=== PATIENT | male | born 1930 | race Caucasian/White ===

== ENCOUNTER 2017-09-16 17:44 | Emergency (ER) | payer OTHER ==
--- NOTE | 2017-09-16 18:12 | Emergency Department Record ---
History of Present Illness - General Chief Complaint: Laceration(s) Stated Complaint: FALL,HEAD LAC Time Seen by Provider: 09/16/17 18:10 Source: Patient, Family () Mode of Arrival: Ambulatory - History of Present Illness Initial Commments: The patient's at the bedside states that he was standing on a chair in an attempt to change a light bulb. While she was getting the light bulb he fell off the chair, hitting his left side of his head on a dog cage, cutting the scalp. He did not lose consciousness or vomit. His states he needs a tetanus, that he has dementia and is hard of hearing. She denies that he uses any blood thinners or aspirin. Patient denies tyson, neck pain, chest, back, rib, abdomen, or extremity pain. He states his hearing aides stopped working yesterday. Onset/Timin -: Minutes(s) Location: Scalp Place: Home Context: Fall Associated Symptoms: None Treatments Prior to Arrival: Bandage - Ce Coma Scale Eye Response: (4) Open spontaneously Motor Response: (6) Obeys commands Verbal Response: (5) Oriented Ce Total: 15 - Related Data Hx Tetanus Toxoid Vaccination: No Patient Tetanus UTD (within 5 yrs): No Home Medications Medication Instructions Recorded Confirmed Last Taken Unobtainable [Unobtainable] 09/16/17 09/16/17 Unknown Allergies Allergy/AdvReac Type Severity Reaction Status Date / Time No Known Drug Allergies Allergy Verified 09/16/17 17:49 Travel Screening - Travel/Exposure Within Last 30 Days Have you traveled within the last 30 days?: No Review of Systems Reviewed: No additional complaints except as noted below Constitutional: Reports: As per HPI. Denies: Chills, Fever, Malaise, Night sweats, Weakness, Weight change Eyes: Reports: As per HPI. Denies: Eye discharge, Eye pain, Photophobia, Vision change ENT: Reports: As per HPI. Denies: Congestion, Dental pain, Ear pain, Epistaxis , Hearing loss, Throat pain Respiratory: Reports: As per HPI. Denies: Cough, Dyspnea, Hemoptysis, Stridor, Wheezes Cardiovascular: Reports: As per HPI. Denies: Arrhythmia, Chest pain, Dyspnea on exertion, Edema, Murmurs, Orthopnea, Palpitations, Paroxysmal nocturnal dyspnea, Rheumatic Fever, Syncope Endocrine: Reports: As per HPI. Denies: Fatigue, Heat or cold intolerance, Polydipsia, Polyuria Gastrointestinal: Reports: As per HPI. Denies: Abdominal pain, Constipation, Diarrhea, Hematemesis, Hematochezia, Melena, Nausea, Vomiting Genitourinary: Reports: As per HPI. Denies: Dysuria, Frequency, Hematuria, Incontinence, Retention, Testicular pain, Testicular mass, Urgency Musculoskeletal: Reports: As per HPI. Denies: Arthralgia, Back pain, Gout, Joint swelling, Myalgia, Neck pain Skin: Reports: As per HPI. Denies: Bruising, Change in color, Change in hair/ nails, Lesions, Pruritus, Rash Neurological: Reports: As per HPI. Denies: Abnormal gait, Confusion, Headache, Numbness, Paresthesias, Seizure, Tingling, Tremors, Vertigo, Weakness Psychiatric: Reports: As per HPI. Denies: Anxiety, Auditory hallucinations, Depression, Homicidal thoughts, Suicidal thoughts, Visual hallucinations Hematological/Lymphatic: Reports: As per HPI. Denies: Anemia, Blood Clots, Easy bleeding, Easy bruising, Swollen glands Past Medical History - SOCIAL HISTORY Smoking Status: Never smoker Alcohol Use: None Drug Use: None - RESPIRATORY Hx Respiratory Disorders: No - CARDIOVASCULAR Hx Cardio Disorders: No - NEURO Hx Neuro Disorders: Yes Hx Dementia: Yes - GI Hx GI Disorders: No - Hx Genitourinary Disorders: No - ENDOCRINE Hx Endocrine Disorders: No - MUSCULOSKELETAL Hx Musculoskeletal Disorders: No - PSYCH Hx Psych Problems: No - HEMATOLOGY/ONCOLOGY Hx Hematology/Oncology Disorders: No Family Medical History Any Significant Family History?: No Physical Exam - General General Appearance: Alert, Oriented x3, Cooperative, No acute distress, Other ( hard of hearing) - Head Head exam: Other (3.0 cm lac to left parietal scalp, bleeding controlled) - Eye Eye exam: Normal appearance, PERRL Pupils: Normal accommodation - ENT ENT exam: Normal exam, Mucous membranes moist, Normal external ear exam, Normal orophraynx, TM's normal bilaterally Ear exam: Normal external inspection. negative: External canal tenderness Nasal Exam: Normal inspection. negative: Discharge, Sinus tenderness Mouth exam: Normal external inspection, Tongue normal Teeth exam: Normal inspection. negative: Dental caries Throat exam: Normal inspection. negative: Tonsillar erythema, Tonsillar exudate - Neck Neck exam: Normal inspection, Full ROM. negative: Lymphadenopathy, Tenderness - Respiratory Respiratory exam: Normal lung sounds bilaterally. negative: Accessory muscle use, Chest wall tenderness, Decreased breath sounds, Prolonged expiratory, Respiratory distress - Cardiovascular Cardiovascular Exam: Regular rate, Normal rhythm, Normal heart sounds - GI/Abdominal GI/Abdominal exam: Soft, Normal bowel sounds. negative: Tenderness - Rectal Rectal exam: Deferred - exam: Deferred - Extremities Extremities exam: Normal inspection, Full ROM, Normal capillary refill, Pedal edema (1 plus ankle edema equal bilaterally, chronic). negative: Calf tenderness, Tenderness - Back Back exam: Reports: Normal inspection, Full ROM. Denies: Muscle spasm, Rash noted, Tenderness - Neurological Neurological exam: Alert, Normal gait, Oriented X3, Reflexes normal - Psychiatric Psychiatric exam: Flat affect, Normal affect, Normal mood - Skin Skin exam: Dry, Intact, Normal color, Warm Type of lesion: Laceration (scalp, left side) Course Vital Signs 09/16/17 17:45 Temperature 98.5 F Pulse Rate 66 Respiratory 20 Rate Blood Pressure 143/87 Pulse Ox 97 - Reevaluation(s) Reevaluation #1: PROCEDURE: TLE topically, sterile scrub, irrigation, closed with #6 adonay. Patient tolerated well. Awaiting UA. 09/16/17 19:54 Medical Decision Making - Management Options MDM Management: No Additional Work-up Planned - Data Complexity MDM Data: Labs Ordered and/or Reviewed, X-Ray Ordered and/or Reviewed ( Noncontrast Head and Cervical CT Neg for acute changes per radiologist.), EKG Ordered and/or Reviewed - Lab Data Result diagrams: 09/16/17 18:30 09/16/17 18:30 - EKG Data -: EKG Interpreted by Md EKG: No Acute Changes Disposition Disposition: Discharge Clinical Impression: Scalp laceration Qualifiers: Encounter type: initial encounter Qualified Code(s): S01.01XA - Laceration without foreign body of scalp, initial encounter Dementia Qualifiers: Dementia type: Alzheimer's disease Alzheimer's disease onset: unspecified onset Dementia behavioral disturbance: without behavioral disturbance Qualified Code(s): G30.9 - Alzheimer's disease, unspecified Disposition: Home, Self-Care Condition: (1) Good Instructions: Laceration (ED), Dementia (ED) Additional Instructions: Adonay out 10 days. Ice to scalp contusion as needed. Tylenol or ibuprofen as directed as needed for pain. Follow up with PCP for recheck. Forms: Patient Portal Access Quality - Quality Measures Quality Measures: Minor Blunt Head Trauma - [place] Coma Scale Ce Coma Scale: Ce Coma Scale Eye Response: (4) Open spontaneously Motor Response: (6) Obeys commands Verbal Response: (5) Oriented [place] Total: 15 - Blunt Head Trauma - Adult Quality Measure: Measure #415: Utilization of CT for Minor Blunt Head Trauma Was CT ordered: Yes Does Patient Have Any of the Following: No Exclusions Patient Presented Within 24 Hours of Injury: Yes [place] Score: [address] for Minor Blunt Head Trauma: < CT Done, Appropriate Indication > [G9529] Additional Inclusion Criteria: Within 24hrs (AND) GCS of 15 (AND) CT ordered. [ G9530] Indications For CT: Dangerous Mechanism of Injury - Blood Pressure Screening Does Patient Have Any of the Following: No Blood Pressure Classification: Pre-Hypertensive BP Reading Systolic Measurement: 143 Diastolic Measurement: 87 Screening for High Blood Pressure: < Pre-Hypertensive BP, F/U Documented > [ G8950] Pre-Hypertensive Follow-up Interventions: Follow-up with rescreen every year.
[2017-09-16] MEDS ORDERED: Diph,Pert(Acell),Tet Vac 0.5 ML SYR IM ONE (18:22)
[2017-09-16 18:42] LABS: BASO % 0.3 % (0-6); EOS % 2.6 % (0-6); GRAN % 75.1 % (47-80); HEMATOCRIT 38.7 % (42.0-52.0); HEMOGLOBIN 13.2 gm/dl (14.0-18.0); LYMPH % 12.2 % (16-45); MEAN CELL VOLUME 92.8 fl (81-97); MEAN CORPUSCULAR HGB CONC 34.1 g/dl (32-36); MEAN PLATELET VOLUME 10.3 fl (7.4-10.4); MONO % 9.8 % (0-9); PLATELET COUNT 205 K/uL (130-400); RED BLOOD COUNT 4.17 M/uL (4.40-5.70); RED CELL DISTRIBUTION WIDTH 12.7 % (11.5-14.5); WHITE BLOOD COUNT W/O DIFF 6.5 K/uL (4.2-12.2)
[2017-09-16 18:43] LABS: MEAN CORPUSCULAR HEMOGLOBIN 31.6 pg (27-33)
[2017-09-16 18:55] LABS: INR 1.03; PARTIAL THROMBOPLASTIN TIME 27.5 SECONDS (24.5-39.1); PROTHROMBIN TIME (PATIENT) 11.1 SECONDS (9.5-12.1)
[2017-09-16 19:01] LABS: ALBUMIN 3.8 g/dL (4.0-5.0); ALKALINE PHOSPHATASE 122 U/L (40-129); ALT/SGPT 14 U/L (<41); AST/SGOT 12 U/L (10.0-50.0); BLOOD UREA NITROGEN 27 mg/dL (8-23); CREATININE 1.6 mg/dL (0.7-1.2); EST GLOMERULAR FILTRATION RATE 44 mL/min; GLUCOSE,RANDOM 101 mg/dL (74-109)
[2017-09-16 19:02] LABS: BILIRUBIN,DIRECT < 0.2 mg/dL (0-0.3)
[2017-09-16] MEDS ORDERED: TOPICAL LIDOCAINE W/ EPI 5 ML TOP ONE (19:07)
[2017-09-16 20:07] LABS: URINE APPEARANCE CLEAR; URINE BILIRUBIN NEGATIVE (NEGATIVE); URINE BLOOD TRACE-I (NEGATIVE); URINE COLOR YELLOW; URINE GLUCOSE (UA) NEGATIVE (NEGATIVE); URINE KETONE NEGATIVE (NEGATIVE); URINE LEUKOCYTE ESTERASE NEGATIVE (NEGATIVE); URINE NITRITE NEGATIVE (NEGATIVE); URINE PROTEIN NEGATIVE (NEGATIVE); URINE UROBILINOGEN 0.2 E.U./dL (0.20 - 1.00)
[2017-09-16 20:16] LABS: URINE RBC 0 - 2 (NONE SEEN); URINE SPERM FEW; URINE WBC 0 - 2 (0-2/hpf)
--- NOTE | 2017-09-18 07:21 | CT SCAN REPORT ---
DATE: 09/16/2017. EXAM: CT OF THE HEAD WITHOUT CONTRAST. HISTORY: Fall. Laceration. Pain. TECHNIQUE: Routine noncontrast CT images of the head were obtained. FINDINGS: There is soft tissue swelling of the left frontoparietal scalp. No depressed skull fracture. The ventricles, basal cisterns, and sulci are prominent consistent with generalized cerebral atrophy. Periventricular hypoattenuation likely a sequela of chronic microvascular ischemia. No evidence for acute ischemia. No intracranial mass or hemorrhage. Orbital contents demonstrate postsurgical changes right globe. Paranasal sinuses and mastoid air cells are essentially clear. IMPRESSION: 1. LEFT FRONTOPARIETAL SCALP HEMATOMA. NO ACUTE INTRACRANIAL PROCESS. 2. GENERALIZED CEREBRAL ATROPHY. CHRONIC MICROVASCULAR ISCHEMIA. JOB NUMBER: [id number] [facility]
--- NOTE | 2017-09-18 07:33 | CT SCAN REPORT ---
DATE: 09/16/2017. EXAM: CT OF THE CERVICAL SPINE WITHOUT CONTRAST. HISTORY: Fall. Laceration. TECHNIQUE: Routine noncontrast CT images of the cervical spine were obtained. FINDINGS: There is loss of normal cervical lordosis. There is slight kyphosis centered at the C5-6 level. There is grade 1 anterolisthesis at C4-5 and a suggestion of slight at C6-7. There is moderate degenerative disc disease at C4-5, C5-6, and C6-7. Lesser degenerative disc disease elsewhere. Moderate to severe facet hypertrophy throughout. No fracture is seen. There is degenerative change at the atlantodental joint. 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 Paraspinous soft tissues are unremarkable. IMPRESSION: NO ACUTE CERVICAL SPINE ABNORMALITY. MODERATE SPONDYLOSIS. JOB NUMBER: [id number] [facility]
== END 2017-09-16 20:24 | disposition home or self-care (01) ==
LOC: ER 17:44
DX: S01.01XA Laceration without foreign body of scalp, initial encounter (principal); S00.03XA Contusion of scalp, initial encounter; M47.892 Other spondylosis, cervical region; G30.9 Alzheimer's disease, unspecified; F02.80 Dementia in other diseases classified elsewhere, unspecified severity, without behavioral disturbance, psychotic disturbance, mood disturbance, and anxiety; W17.89XA Other fall from one level to another, initial encounter; Y92.009 Unspecified place in unspecified non-institutional (private) residence as the place of occurrence of the external cause
CPT/HCPCS: 12002 ×2; 99284 ×2; 96372; 85025; 85730; 85610; 80076; 80048; 81001; 72125; 70450; 93005; 93010; G0480; 80320; 90715

== ENCOUNTER 2017-09-26 09:08 | Emergency (ER) | payer MEDICARE ==
--- NOTE | 2017-09-26 09:27 | Emergency Department Record ---
History of Present Illness - General Chief Complaint: Suture removal Stated Complaint: ADONAY REMOVED Time Seen by Provider: 09/26/17 09:22 Source: Patient Mode of arrival: Ambulatory Limitations: No limitations - History of Present Illness Initial Comments: 86 yo male presents for a wound check and a staple removal. He has not complaints about his healing. No redness, pus, fever or concerns. MD Complaint: Suture/staple removal, Wound re-check Onset/Timin -: Days(s) Initial Visit For: Laceration Returns Today for: Staple/stitch removal Symptoms Since Prior Visit: No new symptoms Associated Symptoms: None - Related Data Allergies Allergy/AdvReac Type Severity Reaction Status Date / Time No Known Drug Allergies Allergy Verified 09/16/17 17:49 Travel Screening - Travel/Exposure Within Last 30 Days Have you traveled within the last 30 days?: No Review of Systems Constitutional: Denies: Chills, Fever, Weakness Eyes: Denies: Eye discharge, Eye pain, Photophobia, Vision change ENT: Denies: Congestion, Throat pain Respiratory: Denies: Cough, Dyspnea, Hemoptysis Cardiovascular: Denies: Chest pain, Palpitations, Syncope Endocrine: Denies: Fatigue Gastrointestinal: Denies: Diarrhea, Nausea, Vomiting Genitourinary: Denies: Dysuria Musculoskeletal: Denies: Arthralgia, Back pain Skin: Denies: Bruising, Change in color Neurological: Denies: Abnormal gait, Confusion, Headache, Numbness, Seizure, Tingling, Tremors, Vertigo, Weakness Psychiatric: Denies: Anxiety Hematological/Lymphatic: Denies: Blood Clots, Easy bleeding, Easy bruising Past Medical History - SOCIAL HISTORY Smoking Status: Never smoker Alcohol Use: None Drug Use: None - RESPIRATORY Hx Respiratory Disorders: No - CARDIOVASCULAR Hx Cardio Disorders: No - NEURO Hx Neuro Disorders: Yes Hx Dementia: Yes - GI Hx GI Disorders: No - Hx Genitourinary Disorders: No - ENDOCRINE Hx Endocrine Disorders: No - MUSCULOSKELETAL Hx Musculoskeletal Disorders: No - PSYCH Hx Psych Problems: No - HEMATOLOGY/ONCOLOGY Hx Hematology/Oncology Disorders: No Family Medical History Any Significant Family History?: No Physical Exam - General General Appearance: Alert, Oriented x3, Cooperative, No acute distress Limitations: No limitations - Head Head exam: Atraumatic, Normocephalic, Normal inspection Head exam detail: Other (Well healed left scalp laceration with intact edges, no redness or pus) - Eye Eye exam: Normal appearance - ENT ENT exam: Normal exam Ear exam: Normal external inspection Nasal Exam: Normal inspection Mouth exam: Normal external inspection, Tongue normal Teeth exam: Normal inspection Throat exam: Normal inspection - Neck Neck exam: Normal inspection - Respiratory Respiratory exam: Normal lung sounds bilaterally. negative: Respiratory distress - Cardiovascular Cardiovascular Exam: Regular rate, Normal rhythm, Normal heart sounds - Neurological Neurological exam: Alert, Oriented X3. negative: Altered, Motor sensory deficit - Psychiatric Psychiatric exam: negative: Agitated, Anxious - Skin Skin exam: Dry, Intact, Normal color, Warm Course Vital Signs 09/26/17 09:14 Temperature 97.8 F Pulse Rate 68 Respiratory 20 Rate Blood Pressure 143/75 Pulse Ox 97 - Reevaluation(s) Reevaluation #1: Well healing laceration No complication [place] removed without any difficulty 09/26/17 09:29 Disposition Disposition: Discharge Clinical Impression: Removal of adonay Disposition: Home, Self-Care Condition: (1) Good Instructions: Stitches Removal (ED) Additional Instructions: Return if you have any concerns about the ongoing healing of your wound. Forms: Patient Portal Access Time of Disposition: 09:27 Quality - Quality Measures Quality Measures: N/A - Blood Pressure Screening Does Patient Have Any of the Following: No Blood Pressure Classification: Hypertensive Reading Systolic Measurement: 143 Diastolic Measurement: 75 Screening for High Blood Pressure: < Pre-Hypertensive BP, F/U Documented > [ G8950] Pre-Hypertensive Follow-up Interventions: Referral to alternative/primary care provider.
== END 2017-09-26 09:38 | disposition home or self-care (01) ==
LOC: ER 09:08
DX: Z48.02 Encounter for removal of sutures (principal)

== ENCOUNTER 2018-04-16 19:44 | Emergency (ER) | payer MEDICARE ==
[2018-04-16 19:54] LABS: HEMATOCRIT 42.2 % (42.0-52.0); HEMOGLOBIN 14.5 gm/dl (14.0-18.0); MEAN CORPUSCULAR HEMOGLOBIN 31.9 pg (27-33); MEAN CORPUSCULAR HGB CONC 34.4 g/dl (32-36); PLATELET COUNT 202 K/uL (130-400); RED BLOOD COUNT 4.54 M/uL (4.40-5.70); RED CELL DISTRIBUTION WIDTH 12.8 % (11.5-14.5); WHITE BLOOD COUNT W/O DIFF 7.4 K/uL (4.2-12.2)
--- NOTE | 2018-04-16 19:58 | Emergency Department Record ---
History of Present Illness - General Chief complaint: Cold Exposure Stated complaint: EVALUATION Time Seen by Provider: 04/16/18 19:52 Source: Patient Mode of Arrival: Ambulatory Limitations: No limitations - History of Present Illness Initial comments: 87 yo male with a history of dementia presents to ED for evaluation after he went missing approximately 4.5 hours ago. Patient was walking his dog, reports that he get lost. EMS reported finding the patient, he was cold to the touch but alert and denies pain/injury. Patient denies injury or pain symptoms on examination, knows that he is in the hospital but is unsure of what town or the year. Family reports that he appears at his baseline. MD Complaint: Other Onset/Timin -: Hour(s) Improves with: Nothing Worsens with: Nothing Associated Symptoms: Denies other symptoms - Related Data Allergies Allergy/AdvReac Type Severity Reaction Status Date / Time No Known Drug Allergies Allergy Verified 09/16/17 17:49 Review of Systems ROS unobtainable: Due to mental status Past Medical History - SOCIAL HISTORY Smoking Status: Never smoker Drug Use: None - RESPIRATORY Hx Respiratory Disorders: No - CARDIOVASCULAR Hx Cardio Disorders: No - NEURO Hx Neuro Disorders: Yes Hx Dementia: Yes - GI Hx GI Disorders: No - Hx Genitourinary Disorders: No - ENDOCRINE Hx Endocrine Disorders: No - MUSCULOSKELETAL Hx Musculoskeletal Disorders: No - PSYCH Hx Psych Problems: No - HEMATOLOGY/ONCOLOGY Hx Hematology/Oncology Disorders: No Physical Exam - General General Appearance: Alert, Oriented x3, Cooperative, Mild distress, Other (Cold to the touch on examination, no focal deficits on examination. ) Limitations: No limitations - Head Head exam: Atraumatic, Normocephalic, Normal inspection Head exam detail: negative: Abrasion, Contusion, Rosario's sign, General tenderness, Hematoma, Laceration - Eye Eye exam: Normal appearance. negative: Conjunctival injection, Periorbital swelling, Periorbital tenderness, Scleral icterus - ENT Ear exam: negative: Auricular hematoma, Auricular trauma Nasal Exam: negative: Active bleeding, Discharge, Dried blood, Foreign body Mouth exam: negative: Drooling, Laceration, Muffled voice, Tongue elevation - Neck Neck exam: Normal inspection. negative: Meningismus, Tenderness - Respiratory Respiratory exam: Normal lung sounds bilaterally. negative: Rales, Respiratory distress, Rhonchi, Stridor - Cardiovascular Cardiovascular Exam: Regular rate, Normal rhythm, Normal heart sounds - GI/Abdominal GI/Abdominal exam: Soft. negative: Rebound, Rigid, Tenderness - Rectal Rectal exam: Deferred - exam: Deferred - Extremities Extremities exam: Normal inspection. negative: Calf tenderness, Pedal edema, Tenderness - Back Back exam: Denies: CVA tenderness (R), CVA tenderness (L) - Neurological Neurological exam: Alert, Normal gait. negative: Motor sensory deficit - Psychiatric Psychiatric exam: Normal affect, Normal mood - Skin Skin exam: Normal color. negative: Abrasion Type of lesion: negative: abrasion Course - Reevaluation(s) Reevaluation #1: 04/16/18 20:08 EKG: NSR 69 Normal axis, normal intervals No acute ST-T wave changes Reevaluation #2: 04/16/18 20:25 Labs reviewed, Creatinine 1.5 (at baseline), labs are otherwise grossly unremarkable for an acute process. Reevaluation #3: 04/16/18 20:45 CT Head: Chronic atrophy and small vessel ischemic changes Ventriculomegaly No acute traumatic injury is noted. Patient and his family were updated on all results thus far, resting comfortably and denies needs at this time. Reevaluation #4: 04/16/18 21:37 UA reviewed and appears negative for an acute process. Patient and his family members were updated on all results, appears stable for discharge at this time. Medical Decision Making - Lab Data Result diagrams: 04/16/18 19:33 04/16/18 19:33 Disposition Disposition: Discharge Clinical Impression: Dementia Qualifiers: Dementia type: unspecified type Dementia behavioral disturbance: without behavioral disturbance Qualified Code(s): F03.90 - Unspecified dementia without behavioral disturbance Hypothermia Qualifiers: Encounter type: initial encounter Qualified Code(s): T68.XXXA - Hypothermia, initial encounter Disposition: Home, Self-Care Condition: (2) Stable Instructions: Acute Hypothermia (ED) Additional Instructions: Return to ED if your symptoms worsen or if you have any concerns. Follow-up with your family doctor in 3-5 days as directed. Forms: Patient Portal Access Time of Disposition: 21:18 Quality - Quality Measures Quality Measures: N/A - Blood Pressure Screening Does Patient Have Any of the Following: No Blood Pressure Classification: Pre-Hypertensive BP Reading Systolic Measurement: 141 Diastolic Measurement: 89 Screening for High Blood Pressure: < Pre-Hypertensive BP, F/U Documented > [ G8950] Pre-Hypertensive Follow-up Interventions: Referral to alternative/primary care provider.
[2018-04-16 20:09] LABS: ALB/GLOB RATIO 1.8 (1.1-1.8); ALBUMIN 4.4 g/dL (4.0-5.0); BILIRUBIN,TOTAL 0.4 mg/dL (0.2-1.0); CREATININE 1.5 mg/dL (0.7-1.2); TOTAL PROTEIN 6.8 g/dL (6.6-8.7)
[2018-04-16 21:34] LABS: URINE APPEARANCE CLEAR; URINE BILIRUBIN NEGATIVE (NEGATIVE); URINE BLOOD SMALL (NEGATIVE); URINE COLOR YELLOW; URINE GLUCOSE (UA) NEGATIVE (NEGATIVE); URINE KETONE NEGATIVE (NEGATIVE); URINE LEUKOCYTE ESTERASE NEGATIVE (NEGATIVE); URINE NITRITE NEGATIVE (NEGATIVE); URINE PROTEIN NEGATIVE (NEGATIVE); URINE UROBILINOGEN 0.2 E.U./dL (0.20 - 1.00)
[2018-04-16 21:35] LABS: URINE BACTERIA NONE SEEN; URINE EPITHELIAL CELLS 0 - 2 (FEW); URINE RBC 0 - 2 (NONE SEEN); URINE WBC 0 - 2 (0-2/hpf)
[2018-04-16] MEDS ORDERED: LIDOCAINE UROJECT 10 ML APPL MM ONE (21:35)
--- NOTE | 2018-04-18 10:38 | CT SCAN REPORT ---
EXAM: CT OF THE HEAD WITHOUT CONTRAST HISTORY: LATE STAGE OF ALZHEIMER'S DISEASE. POSSIBLE FALL. TECHNIQUE: Routine noncontrast CT examination of the head was obtained. Comparison: CT of the head without contrast dated 09/16/17. FINDINGS: Moderate to marked dilatation of the subarachnoid spaces redemonstrated consistent with generalized atrophy. There is associated mild ventriculomegaly. Mild periventricular and subcortical white matter lucencies are again noted scattered in each cerebral hemisphere, not significantly changed. These are nonspecific, but likely the result of chronic small vessel ischemia. No definite new area of abnormally increased or decreased attenuation is noted throughout the brain substance. No new abnormal extraaxial fluid collection is seen. The visualized paranasal sinuses and mastoid air cells are clear. IMPRESSION: 1. NO CT EVIDENCE OF AN ACUTE INTRACRANIAL ABNORMALITY NOR SKULL FRACTURE WITHOUT SIGNIFICANT CHANGE IN APPEARANCE OF THE BRAIN SINCE 09/16/17. 2. GENERALIZED ATROPHY WITH VENTRICULOMEGALY REDEMONSTRATED. WHITE MATTER LUCENCIES SCATTERED IN EACH CEREBRAL HEMISPHERE, THE PATTERN OF WHICH IS UNCHANGED CONSISTENT WITH CHRONIC SMALL VESSEL ISCHEMIA. JOB NUMBER: [id number] [facility]
== END 2018-04-16 21:46 | disposition home or self-care (01) ==
LOC: ER 19:44
DX: T68.XXXA Hypothermia, initial encounter (principal); X31.XXXA Exposure to excessive natural cold, initial encounter; G30.1 Alzheimer's disease with late onset; F02.80 Dementia in other diseases classified elsewhere, unspecified severity, without behavioral disturbance, psychotic disturbance, mood disturbance, and anxiety
CPT/HCPCS: 70450; 80053; 81001; 85027; 93005; 93010; 99284